=== PATIENT | female | born 1955 | race Caucasian/White ===

== ENCOUNTER 2016-08-08 01:54 | Emergency (ER) | payer OTHER ==
[~2016-08-08] VITALS: Ht 160 cm; Wt 68.6 kg
[~2016-08-08 01:54] MED LIST: ALDACTONE25 MG PO; AMBIEN10 MG PO; ANTIVERT25 MG PO; ASPIR-LOW81 MG PO; AVENTYL,PAMELOR50 MG PO; Aldactone PO; Ambien PO; BENAZEPRIL HCL10 MG PO; BISOPROLOL-HCT1 EAC2 PO; CRESTOR10 MG PO; CRESTOR5 MG PO; ENDOCET 5-3251 EACH PO; Ecotrin PO; Glucophage XR,Fortam PO; JANUMET 50/11 TABLET PO; LOTREL 5/201 CAPSULE PO; Lotrel 5/20 PO; NEURONTIN300 MG PO; OMEPRAZOLE40 M1 PO; TYLENOL REGULA325 MG PO
[2016-08-08 02:44] LABS: HEMATOCRIT 36.4 % (36.0-46.0); MCH 28.7 PG (29.0-34.0); MCHC 33.2 G/DL (30.0-36.0); MCV 86.5 FL (83-99); MEAN PLAT.VOLUME 10.2 uM^3 (9.5-12.4); PLATELET COUNT 213 K/uL (156-360); RBC DIS.WIDTH-CV 12.5 % (11.8-14.6); RBC DIS.WIDTH-SD 39.8 % (39-53); RED BLOOD COUNT 4.21 M/uL (3.80-5.20); WHITE BLOOD COUNT 9.6 K/uL (4.1-10.2)
[2016-08-08 02:53] LABS: CHLORIDE 106 mEq/L (99-109); POTASSIUM 3.3 mEq/L (3.7-5.4); SODIUM 140 mEq/L (136-147)
[2016-08-08 02:55] LABS: GLUCOSE 183 mg/dL (70-99)
[2016-08-08 02:56] LABS: ANION GAP 11 MEQ/L (2-14)
[2016-08-08 02:59] LABS: GFR ESTIMATE (CALCULATED) > 59 mL/min/
[2016-08-08 03:00] LABS: UREA NITROGEN (BUN) 10 mg/dL (9-23)
[2016-08-08 03:07] LABS: TROP-I INTERPRETATION NEGATIVE; TROPONIN-I < 0.01 ng/mL (0.0-0.30)
[2016-08-08] MEDS ORDERED: TESSALON PERLE100 MG PO (03:29)
[2016-08-08] MEDS ORDERED: VENTOLIN HFA18 GM IH (03:29)
[2016-08-08] MEDS ORDERED: HYCODAN SYRUP480 ML PO (03:40)
[2016-08-08 03:46] VITALS: BP 150/72
== END 2016-08-08 03:49 | disposition home or self-care (01) ==
LOC: EME 01:54
PROVIDERS: Emergency Medicine
DX: J20.9 Acute bronchitis, unspecified (principal); I10 Essential (primary) hypertension; E11.9 Type 2 diabetes mellitus without complications; E78.5 Hyperlipidemia, unspecified; Z82.49 Family history of ischemic heart disease and other diseases of the circulatory system
CPT/HCPCS: 71020; 80048; 83880; 84484; 85027; 93005; 94640; 99281; 99285